=== PATIENT | female | born 1980 | race Caucasian/White ===

== ENCOUNTER 2024-01-23 15:30 | Emergency (ER) | payer BC, MEDICAID ==
[~2024-01-23] VITALS: Ht 154.9 cm; Wt 67.0 kg
[2024-01-23 15:41] VITALS: O2SAT 100
[2024-01-23] MEDS ORDERED: SULF1TAB48 MT (18:12)
[2024-01-23] MEDS ORDERED: AMOX1TAB16 MT (18:12)
[2024-01-23] MEDS ORDERED: NAPR500T7 PO (18:12)
[2024-01-23 18:30] VITALS: BP 110/63; PULSE 86; RESP 17; TEMP 97.9
[2024-01-23] MEDS: KETOROLAC 60MG/2ML VIAL IM STA (18:30)
[2024-01-23] MEDS: LIDOCAINE HCL/PF 1% 10 MG/ML 5ML VIAL INFIL NR (18:30)
[2024-01-23] MEDS: CEFTRIAXONE SODIUM 1G VIAL IM NR (18:30)
== END 2024-01-23 18:52 | disposition home or self-care (01) ==
LOC: ER 15:30
DX: K02.9 Dental caries, unspecified (principal); L03.211 Cellulitis of face; K04.7 Periapical abscess without sinus; Z98.890 Other specified postprocedural states
CPT/HCPCS: 96372; 99284; J0696; J1885; J3490; Z7610